=== PATIENT | male | born 1995 | race Caucasian/White ===

== ENCOUNTER 2017-01-02 02:01 | Emergency (ER) | payer OTHER ==
[~2017-01-02] VITALS: Ht 180.3 cm; Wt 79.4 kg
[2017-01-02 02:01] VITALS: BP_SYST 152
[2017-01-02 02:23] VITALS: BP_SYST 148
== END 2017-01-02 02:15 ==
LOC: SED 02:01
DX: F10.129 Alcohol abuse with intoxication, unspecified (principal); V47.5XXA Car driver injured in collision with fixed or stationary object in traffic accident, initial encounter; Y93.89 Activity, other specified; Y92.488 Other paved roadways as the place of occurrence of the external cause; Y99.8 Other external cause status
CPT/HCPCS: 99283